=== PATIENT | male | born 1965 | race African-American/Black ===

== ENCOUNTER 2023-09-21 19:27 | Emergency (ER) | payer MEDICAID, MEDICARE ==
[2023-09-21] MEDS ORDERED: Boostrix 0.5 ML (Tdap) VIAL (>/=7 yrs of age) ONE (20:05)
== END 2023-09-21 20:47 | disposition home or self-care (01) ==
LOC: CSHERS 19:27
DX: S01.511A Laceration without foreign body of lip, initial encounter (principal); F17.210 Nicotine dependence, cigarettes, uncomplicated; K21.9 Gastro-esophageal reflux disease without esophagitis; J45.909 Unspecified asthma, uncomplicated; W22.8XXA Striking against or struck by other objects, initial encounter; Y93.89 Activity, other specified; Z23 Encounter for immunization; Z79.899 Other long term (current) drug therapy
CPT/HCPCS: 40650; 90471; 90715

== ENCOUNTER 2023-10-01 16:24 | Emergency (ER) | payer MEDICAID, MEDICARE | END 2023-10-01 16:54 | disposition home or self-care (01) | LOC: CSHERS 16:24 | DX: S01.511D Laceration without foreign body of lip, subsequent encounter (principal); Z48.02 Encounter for removal of sutures; F17.210 Nicotine dependence, cigarettes, uncomplicated; K21.9 Gastro-esophageal reflux disease without esophagitis; J45.909 Unspecified asthma, uncomplicated; Z79.899 Other long term (current) drug therapy; Z79.51 Long term (current) use of inhaled steroids; X58.XXXD Exposure to other specified factors, subsequent encounter ==

== ENCOUNTER 2024-12-07 12:38 | Emergency (ER) | payer OTHER ==
[2024-12-07] MEDS ORDERED: Magnesium 2 GM/50 ML BAG (IN WATER) ONE (13:19)
[2024-12-07 15:45] LABS: #Basophils 0.03 10x3/uL (0.0-0.2); #Eosinophils Less than 0.03 10x3/uL (0.0-0.5); #Monocytes 1.79 10x3/uL (0.0-1.1); #Neutrophils 14.28 10x3/uL (1.5-8.4); %Basophils 0.2 % (0.0-2.0); %Eosinophils 0.0 % (0.0-6.0); %Lymphocytes 7.7 % (18.0-47.0); %Monocytes 10.2 % (0.0-10.0); %Neutrophils 81.2 % (40.0-75.0); Hematocrit 43.0 % (38.8-50.0); Hemoglobin 13.9 g/dL (13.5-17.5); Mean Corpuscular Hemoglobin 27.1 pg (27.0-33.0); Mean Corpuscular Volume 83.8 fL (81.2-95.1); Platelet Count 372 10x3/uL (150-450); Red Blood Cell (RBC) Count 5.13 10x6/uL (4.32-5.72); White Blood Cell (WBC) Count 17.58 10x3/uL (3.5-10.5)
[2024-12-07 16:13] LABS: Actual Bicarbonate (HCO3v) 51.9 mEq/L (22-28); Analyzer IN Cardio CS ER; Base Excess 23.8 mEq/L (-2 - +2); Calcium, Ionized (venous) 0.78 mmol/L (1.16-1.32); Chloride (VBG) Less than 0 mmol/L (98-106); Hematocrit-VBG 43 % (42.0-52.0); Hemoglobin (Hb) 14.7 g/dL (13.1-17.2); Potassium (VBG) 2.40 mmol/L (3.70-5.30); Puncture Site Other Site; Sodium 140 mmol/L (133-146)
[2024-12-07 16:26] LABS: BUN (Urea Nitrogen) 76 mg/dL (8.4-25.7); Calc. Creatinine Clearance 0 mL/min (70-130); Chloride Less than 65 mmol/L (98-107); Potassium 3.5 mmol/L (3.5-5.1); Sodium 141 mmol/L (136-145)
[2024-12-07 16:27] LABS: ALT (SGPT) 15 U/L (Less than 45); AST (SGOT) 51 U/L (11-34); Albumin 4.6 g/dL (3.1-4.5); Alkaline Phosphatase 83 U/L (40-110); Bilirubin, Total 1.1 mg/dL (0.3-1.2); CK (CPK) 343 U/L (30-200); Calcium 9.2 mg/dL (7.8-10.44); Globulin 5.0 g/dL (2.4-3.5); Glucose 73 mg/dL (80-115)
[2024-12-07 16:41] LABS: Troponin I 0.107 ng/mL (< 0.028)
[2024-12-07 16:43] LABS: Carbon Dioxide 45 mmol/L (23-31)
[2024-12-07 16:44] LABS: Acetaminophen Less than 10 mcg/mL (Less than 10); Salicylate Less than 8.0 mg/dL (Less than 8.0)
[2024-12-07 16:48] LABS: Magnesium 5.0 mg/dL (1.6-2.6)
[2024-12-07] MEDS ORDERED: Cefepime 2 GM VIAL ONE (16:59)
[2024-12-07] MEDS ORDERED: Ondansetron PF 4 MG/2 ML Vial ONE (19:36)
[2024-12-07] MEDS ORDERED: Pantoprazole 40 MG VIAL ONE (20:30)
[2024-12-07 23:48] LABS: Glucose, Urine (Dipstick) Normal (Negative); Leukocyte Negative (Negative); Protein, Urine (Dipstick) 100 mg/dl (Neg-Trace); Specific Gravity, Urine 1.025 (1.005-1.030)
[2024-12-07 23:55] LABS: Cocaine Metabolite Screen PRELIM POSITIVE (Negative); THC/Cannabinoid Screen Negative (Negative); Tricyclic Screen Negative (Negative)
[2024-12-08 00:03] LABS: CAUTI Indications for Culture Alt mental st,lethar; RBC/HPF 0-3 HPF (0-3)
[2024-12-08 00:04] LABS: Bacteria/HPF 2+ HPF (None Seen); Urine Culture Reflex No No
[2024-12-08 02:01] LABS: Carbon Dioxide 45 mmol/L (23-31)
[2024-12-08 02:14] LABS: BUN (Urea Nitrogen) 85 mg/dL (8.4-25.7); Calc. Creatinine Clearance 0 mL/min (70-130); Calcium 7.6 mg/dL (7.8-10.44); Chloride Less than 65 mmol/L (98-107); Glucose 109 mg/dL (80-115); Magnesium 3.7 mg/dL (1.6-2.6); Potassium 2.8 mmol/L (3.5-5.1); Sodium 139 mmol/L (136-145)
[2024-12-08] MEDS ORDERED: Potassium Bicarbonate/Cit Ac 20 MEQ TAB ONE (02:37)
[2024-12-08] MEDS ORDERED: Potassium Chloride 20 MEQ in Premix 1 BAG IVPB SCH (06:30)
== END 2024-12-08 06:23 | disposition short-term general hospital (02) ==
LOC: CSHERS 12:38
DX: N17.9 Acute kidney failure, unspecified (principal); I45.81 Long QT syndrome; F17.210 Nicotine dependence, cigarettes, uncomplicated; Z55.6 Problems related to health literacy
CPT/HCPCS: 70450; 71045; 72125; 80048; 80053; 80306; 80307; 81001; 82140; 82550; 82805; 82962; 83605; 83735; 84484; 85025; 87040; 94640; J0692; J2405; J2470; J3411; J3475; 36415; 36416; 96361; 96374; 96375; J7620

== ENCOUNTER 2024-12-13 22:12 | Emergency (ER) | payer OTHER ==
[2024-12-13 23:17] LABS: #Basophils 0.05 10x3/uL (0.0-0.2); #Eosinophils 0.08 10x3/uL (0.0-0.5); #Monocytes 1.20 10x3/uL (0.0-1.1); #Neutrophils 5.48 10x3/uL (1.5-8.4); %Basophils 0.6 % (0.0-2.0); %Eosinophils 0.9 % (0.0-6.0); %Lymphocytes 23.3 % (18.0-47.0); %Monocytes 13.5 % (0.0-10.0); %Neutrophils 61.4 % (40.0-75.0); Hematocrit 39.4 % (38.8-50.0); Hemoglobin 12.6 g/dL (13.5-17.5); Mean Corpuscular Hemoglobin 26.5 pg (27.0-33.0); Mean Corpuscular Volume 82.9 fL (81.2-95.1); Platelet Count 284 10x3/uL (150-450); Red Blood Cell (RBC) Count 4.75 10x6/uL (4.32-5.72); White Blood Cell (WBC) Count 8.92 10x3/uL (3.5-10.5)
[2024-12-13 23:32] LABS: ALT (SGPT) 16 U/L (Less than 45); AST (SGOT) 37 U/L (11-34); Albumin 3.9 g/dL (3.1-4.5); Alkaline Phosphatase 65 U/L (40-110); BUN (Urea Nitrogen) 38 mg/dL (8.4-25.7); Bilirubin, Total 0.6 mg/dL (0.3-1.2); Calc. Creatinine Clearance 0 mL/min (70-130); Calcium 9.5 mg/dL (7.8-10.44); Globulin 4.0 g/dL (2.4-3.5); Glucose 118 mg/dL (80-115)
[2024-12-13 23:39] LABS: Anion Gap 24 mmol/L (10-20); Carbon Dioxide 47 mmol/L (23-31); Chloride 70 mmol/L (98-107); Sodium 138 mmol/L (136-145)
[2024-12-13 23:48] LABS: Potassium 2.6 mmol/L (3.5-5.1)
[2024-12-14] MEDS ORDERED: Potassium Chloride 20 MEQ (100 mL) BAG ONE (00:26)
== END 2024-12-14 01:29 | disposition short-term general hospital (02) ==
LOC: CSHERS 22:12
DX: N17.9 Acute kidney failure, unspecified (principal); E87.6 Hypokalemia; F17.210 Nicotine dependence, cigarettes, uncomplicated
CPT/HCPCS: 80053; 85025; 93005; J3480; 36415; 93010; 96374